=== PATIENT | female | born 1970 ===

== ENCOUNTER 2024-09-09 06:38 | Day surgery (SDC) | payer OTHER ==
[2024-09-09] MEDS ORDERED: fentaNYL CITRATE 50 MCG/ML AMPUL IV PUSH ONE (11:45)
[2024-09-09] MEDS ORDERED: MIDAZOLAM HCL 2 MG/2 ML VIAL IV ONE (11:45)
[2024-09-09] MEDS ORDERED: DIPHENHYDRAMINE HCL 50 MG/ML VIAL 1ML IV ONE (11:45)
== END 2024-09-09 13:20 | disposition home or self-care (01) ==
LOC: AMB-ENDOS 06:38
PROVIDERS: ATTEND Internal Medicine
DX: D12.2 Benign neoplasm of ascending colon (principal); R19.4 Change in bowel habit; K63.5 Polyp of colon; K64.4 Residual hemorrhoidal skin tags; K21.9 Gastro-esophageal reflux disease without esophagitis; K29.00 Acute gastritis without bleeding